=== PATIENT | male | born 1975 | race Caucasian/White ===

== ENCOUNTER 2018-05-06 18:29 | Emergency (ER) | payer BC, OTHER ==
[2018-05-06] MEDS ORDERED: Ketorolac 60 MG/2 ML SDV IM ONE (18:45)
[2018-05-06] MEDS ORDERED: Diphtheria,Pertussis(Acell),Tetanus Vaccine 0.5 ML Syringe IM ONE (18:45)
[2018-05-06] MEDS ORDERED: Bacitracin Oint 1 GM U/D Packet TOP ONE (18:45)
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
--- NOTE | 2018-05-06 22:25 | CR ---
EXAM DATE: 05/06/18 PATIENT'S AGE: 42 Patient: IVORY CABRERA Facility: [place], [place] Site . Site : 1975 Study: XRay Extremity Left femur [id number]/24/2018 7:17:24 PM Ordering Physician: Titus Lyman Final Report: Clinical indication : Trauma. FINDINGS: No bone or joint abnormality is identified. There is no fracture or dislocation. Impression: Negative study. Dictated by Aroldo Gonzalez MD @ May 06 2018 7:53PM (Electronic Signature) Report Signed by Proxy. [facility]
== END 2018-05-06 20:20 | disposition home or self-care (01) ==
LOC: MW.ED 18:29
DX: S80.12XA Contusion of left lower leg, initial encounter (principal); S40.022A Contusion of left upper arm, initial encounter; V89.2XXA Person injured in unspecified motor-vehicle accident, traffic, initial encounter; Z23 Encounter for immunization
CPT/HCPCS: 73060; 73552; 90471; 90715; 96372; 99284; J1885

== ENCOUNTER 2022-07-24 09:44 | Emergency (ER) | payer OTHER, BC | END 2022-07-24 14:17 | disposition home or self-care (01) | LOC: MW.ED 09:44 | DX: S83.411A Sprain of medial collateral ligament of right knee, initial encounter (principal); X50.0XXA Overexertion from strenuous movement or load, initial encounter; Y93.02 Activity, running | CPT/HCPCS: 73562-26-RT; 73562-RT; 73721-26-RT; 73721-RT; 99284 ==